=== PATIENT | male | born 2000 | race American Indian/Alaskan Native ===

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

== ENCOUNTER 2019-02-06 20:05 | Emergency (ER) | payer MEDICAID ==
[2019-02-06 21:13] VITALS: BP 126/54
--- NOTE | 2019-02-06 21:31 | Emergency Department Report ---
Blank Doc - Documentation Documentation: 18 y/o male with a bump in his groin that he noticed this evening.
[2019-02-06] MEDS ORDERED: BACTRIM DS PO ONE (22:30)
[2019-02-06] MEDS ORDERED: TYLENOL PO ONE (22:30)
[2019-02-06] MEDS ORDERED: ZOFRAN ODT PO ONE (22:31)
--- NOTE | 2019-02-06 23:05 | Emergency Department Report ---
- General Chief complaint: Urogenital-Male Stated complaint: BUMP IN PRIVATE AREA Time Seen by Provider: 02/06/19 22:20 Source: patient, EMS Mode of arrival: Ambulatory Limitations: No Limitations - History of Present Illness MD complaint: rash, insect bite/sting, abscess/boil -: Sudden, days(s) (5) Tetanus Up to Date: yes Location: LUE, genitals Severity: moderate Severity scale (0 -10): 5 Quality: aching, sharp Consistency: constant Improves with: none Worsens with: palpation, movement Context: none Associated symptoms: denies other symptoms Treatments Prior to Arrival: none - Related Data Previous Rx's Medication Instructions Recorded Last Taken Type Acetaminophen/Codeine [Tylenol 2 tab PO QHS PRN #8 tab 12/13/17 Unknown Rx /Codeine # 3 tab] cephALEXin [Keflex] 500 mg PO Q8HR 10 Days #30 cap 12/13/17 Unknown Rx Ibuprofen [Motrin 600 MG tab] 600 mg PO Q8H PRN #15 tablet 06/19/18 Unknown Rx Ibuprofen [Motrin] 600 mg PO Q8H PRN #20 tablet 02/06/19 Unknown Rx Sulfamethoxazole/Trimethoprim 1 each PO Q12H #20 tablet 02/06/19 Unknown Rx [Bactrim DS TAB] Allergies Allergy/AdvReac Type Severity Reaction Status Date / Time No Known Allergies Allergy Unverified 12/13/17 17:38 Abscess Boil HPI - HPI Chief Complaint: Urogenital-Male Stated Complaint: BUMP IN PRIVATE AREA Time Seen by Provider: 02/06/19 22:20 Duration: 5 Days Location: Other (suprapubic area) Severity: Moderate History: Yes Insect Bite, No Fever, No Pain, No Purulent Drainage, No Numbness, No Foreign Body, No Previous History Home Medications: Previous Rx's Medication Instructions Recorded Last Taken Type Acetaminophen/Codeine [Tylenol 2 tab PO QHS PRN #8 tab 12/13/17 Unknown Rx /Codeine # 3 tab] cephALEXin [Keflex] 500 mg PO Q8HR 10 Days #30 cap 12/13/17 Unknown Rx Ibuprofen [Motrin 600 MG tab] 600 mg PO Q8H PRN #15 tablet 06/19/18 Unknown Rx Ibuprofen [Motrin] 600 mg PO Q8H PRN #20 tablet 02/06/19 Unknown Rx Sulfamethoxazole/Trimethoprim 1 each PO Q12H #20 tablet 02/06/19 Unknown Rx [Bactrim DS TAB] Allergies/Adverse Reactions: Allergies Allergy/AdvReac Type Severity Reaction Status Date / Time No Known Allergies Allergy Unverified 12/13/17 17:38 ED Review of Systems ROS: Stated complaint: BUMP IN PRIVATE AREA Other details as noted in HPI Comment: All other systems reviewed and negative Constitutional: no symptoms reported, see HPI. denies: chills, fever, weakness Eyes: as per HPI. denies: eye pain, eye discharge, vision change ENT: as per HPI. denies: ear pain, throat pain, dental pain, hearing loss Respiratory: no symptoms reported, see HPI. denies: cough, shortness of breath Cardiovascular: as per HPI. denies: chest pain, dyspnea on exertion, syncope Endocrine: no symptoms reported, see HPI Gastrointestinal: as per HPI. denies: abdominal pain, nausea, vomiting, diarrhea Genitourinary: as per HPI. denies: urgency, dysuria, frequency, hematuria, discharge, testicular pain, testicular mass Musculoskeletal: as per HPI. denies: back pain, joint swelling, arthralgia, myalgia Skin: as per HPI, rash, change in color, pruritus, other (swollen, painful left upper arm and left inguinal maculopapular erythematous nonfluctuant rash). de nies: change in hair/nails Neurological: as per HPI. denies: headache, weakness, numbness, paresthesias, abnormal gait, vertigo Psychiatric: as per HPI Hematological/Lymphatic: as per HPI ED Past Medical Hx - Past Medical History Previous Medical History?: Yes Additional medical history: insomnia - Surgical History Past Surgical History?: No - Social History Smoking Status: Current Every Day Smoker Substance Use Type: Marijuana - Medications Home Medications: Home Medications Medication Instructions Recorded Confirmed Last Taken Type Acetaminophen/Codeine [Tylenol 2 tab PO QHS PRN #8 tab 12/13/17 Unknown Rx /Codeine # 3 tab] cephALEXin [Keflex] 500 mg PO Q8HR 10 Days #30 cap 12/13/17 Unknown Rx Ibuprofen [Motrin 600 MG tab] 600 mg PO Q8H PRN #15 tablet 06/19/18 Unknown Rx Ibuprofen [Motrin] 600 mg PO Q8H PRN #20 tablet 02/06/19 Unknown Rx Sulfamethoxazole/Trimethoprim 1 each PO Q12H #20 tablet 02/06/19 Unknown Rx [Bactrim DS TAB] ED Physical Exam - General Limitations: No Limitations General appearance: alert, in no apparent distress, anxious - Head Head exam: Present: normocephalic, normal inspection - Eye Eye exam: Present: normal appearance, PERRL, EOMI Pupils: Present: normal accommodation - ENT ENT exam: Present: normal exam, normal orophraynx, mucous membranes moist, TM's normal bilaterally, normal external ear exam - Neck Neck exam: Present: normal inspection. Absent: tenderness, full ROM, lymphadenopathy - Respiratory Respiratory exam: Present: normal lung sounds bilaterally. Absent: respiratory distress, wheezes, rhonchi, chest wall tenderness - Cardiovascular Cardiovascular Exam: Present: regular rate, normal rhythm, normal heart sounds - GI/Abdominal GI/Abdominal exam: Present: soft, normal bowel sounds. Absent: distended, tenderness, guarding - Rectal Rectal exam: Present: deferred - exam: Present: normal inspection, circumcision. Absent: testicular tenderness, urethral discharge, scrotal swelling, vertical testicular lie External exam: Present: normal external exam. Absent: erythema, swelling, lacerations - Expanded Exam Expanded exam: Inguinal Lymphadenopathy: Left (swollen, tender to palpation) - Extremities Exam Extremities exam: Present: full ROM, tenderness, normal capillary refill, other (palpable left upper arm tenderness due to maculopapular erythematous rash) - Back Exam Back exam: Present: normal inspection, full ROM. Absent: tenderness, CVA tenderness (R), CVA tenderness (L), muscle spasm - Neurological Exam Neurological exam: Present: alert, oriented X3, CN II-XII intact, normal gait, reflexes normal - Psychiatric Psychiatric exam: Present: normal affect - Skin Skin exam: Present: warm, dry, rash, erythema, other (swollen, erythematous maculopapular rash on left upper arm and left inguinal area with tenderness) ED Course Vital Signs 02/06/19 21:12 Temperature 98.4 F Pulse Rate 78 Respiratory 16 Rate Blood Pressure 126/54 O2 Sat by Pulse 98 Oximetry ED Medical Decision Making - Medical Decision Making Patient had presented to the ED with complaint of painful swollen mildly erythematous rash on left upper arm and left inguinal area. In the ED, patient is hemodynamically stable, and was treated for pain and given initial dose of oral antibiotics Bactrim DS. On reevaluation, the patient's pain is well controlled and patient was discharged home on pain medications and oral antibiotics, and advised to follow up with his primary care physician in 7-10 days for reevaluation or return to the ED immediately if symptoms get worse. - Differential Diagnosis Acute folliclulitis, Cellulitis, Insect bite, Inguinal Lymphadenopathy Critical care attestation.: If time is entered above; I have spent that time in minutes in the direct care of this critically ill patient, excluding procedure time. ED Disposition Clinical Impression: Acute folliculitis, Cutaneous abscess of groin, Lymphadenopathy, inguinal Disposition: TO HOME OR SELFCARE Is pt being admited?: No Does the pt Need Aspirin: No Condition: Stable Instructions: Abscess (ED), Cellulitis (ED), Lymphadenopathy (ED) Additional Instructions: Take medications with food, drink plenty of fluids and follow up with your primary care physician as advised. Return to the ED immediately if symptoms get worse. Prescriptions: Sulfamethoxazole/Trimethoprim [Bactrim DS TAB] 1 each PO Q12H #20 tablet Ibuprofen [Motrin] 600 mg PO Q8H PRN #20 tablet PRN Reason: Pain Referrals: LINDA RUIZ MD [Primary Care Provider] - 3-5 Days Time of Disposition: 23:07 Print Language: ANGOLAN
== END 2019-02-06 23:17 | disposition home or self-care (01) ==
LOC: ED 20:05
DX: L73.9 Follicular disorder, unspecified (principal); L02.214 Cutaneous abscess of groin; R59.1 Generalized enlarged lymph nodes; F17.200 Nicotine dependence, unspecified, uncomplicated
CPT/HCPCS: Q0162

== ENCOUNTER 2020-07-21 20:37 | Emergency (ER) | payer MEDICAID ==
--- NOTE | 2020-07-21 21:11 | Emergency Department Report ---
<SMITH MAHONEY - Last Filed: 07/23/20 11:29> History of Present Illness - General Chief Complaint: Overdose Stated Complaint: SUICIDE ATTEMPT Time Seen by Provider: 07/21/20 20:41 - Related Data Previous Rx's Medication Instructions Recorded Last Taken Type Acetaminophen/Codeine [Tylenol 2 tab PO QHS PRN #8 tab 12/13/17 Unknown Rx /Codeine # 3 tab] cephALEXin [Keflex] 500 mg PO Q8HR 10 Days #30 cap 12/13/17 Unknown Rx Ibuprofen [Motrin 600 MG tab] 600 mg PO Q8H PRN #15 tablet 06/19/18 Unknown Rx Ibuprofen [Motrin] 600 mg PO Q8H PRN #20 tablet 02/06/19 Unknown Rx Sulfamethoxazole/Trimethoprim 1 each PO Q12H #20 tablet 02/06/19 Unknown Rx [Bactrim DS TAB] Ziprasidone [Geodon] 20 mg PO BID #60 capsule 07/23/20 Unknown Rx traZODone [Desyrel] 50 mg PO QHS 30 Days #30 tablet 07/23/20 Unknown Rx Allergies Allergy/AdvReac Type Severity Reaction Status Date / Time No Known Allergies Allergy Unverified 12/13/17 17:38 ED Past Medical Hx - Medications Home Medications: Home Medications Medication Instructions Recorded Confirmed Last Taken Type Acetaminophen/Codeine [Tylenol 2 tab PO QHS PRN #8 tab 12/13/17 Unknown Rx /Codeine # 3 tab] cephALEXin [Keflex] 500 mg PO Q8HR 10 Days #30 cap 12/13/17 Unknown Rx Ibuprofen [Motrin 600 MG tab] 600 mg PO Q8H PRN #15 tablet 06/19/18 Unknown Rx Ibuprofen [Motrin] 600 mg PO Q8H PRN #20 tablet 02/06/19 Unknown Rx Sulfamethoxazole/Trimethoprim 1 each PO Q12H #20 tablet 02/06/19 Unknown Rx [Bactrim DS TAB] Ziprasidone [Geodon] 20 mg PO BID #60 capsule 07/23/20 Unknown Rx traZODone [Desyrel] 50 mg PO QHS 30 Days #30 tablet 07/23/20 Unknown Rx ED Course - Reevaluation(s) Reevaluation #3: 07/23/20 11:30 Psychiatry Progress Note Patient Name: NAEEM DUKE Date of : 89 Patient Status: Emergency Emergency Provider: TRUNG PHILIPPE III Date: 07/23/20 07:51 Initialization Date: 07/23/20 07:51 Subjective - Reason for Consult Consult date: 07/23/20 Reason for consult: MHE Requesting physician: TRUNG PHILIPPE III - Chief Complaint Chief complaint: PSYCH HPI Patient was seen by me in the room this AM, patient reports doing pretty good, reports sleeping well states the medication really helped and that he no longer feels suicidal. Patient stated today he took the pills he thought his family will be happy that he was currently gone but instead they showed love that showed a moderate concern and that made him know that he has a family that cares. Patient denies any auditory or visual hallucination REVIEW OF SYSTEMS Constitutional: Negative for weight loss ENT: Negative for stridor Respiratory: Negative for cough or hemoptysis All other systems reviewed and are negative MENTAL STATUS EXAMINATION General Appearance and Behavior: Age appropriate, good hygiene, wearing appropriate clothes, lying in bed, good eye contact, cooperative polite with questioning. Cooperation: Participating/engaged Psychomotor Behavior: unremarkable and within normal limits Mood: Good Affect and affective range: Congruent with mood Thought Process: Fluent/Logical, Thought Content: Within reality Speech: Normal volume, Regular rate and rhythm Intellectual Functioning: Average Suicidal Ideation: Denies SI Homicidal Ideation: Denies HI Impulse Control: Unimpaired Insight and Judgment: Limited insight and judgment Memory: Normal Attention: Normal, Orientation: Alert, oriented Diagnoses: Assessment and Plan - Patient Problems (1) Acute stress disorder Current Visit: Yes Status: Acute Treatment Plan MEDICATIONS: Risks, benefits and alternatives of medications discussed with the patient, questions answered and consent obtained from patient. PSYCHOTHERAPY: Supportive psychotherapy provided MEDICAL: Per primary team DELIRIUM PRECAUTIONS: Please re-orient patient frequently, keep lights on during the day, and minimize benzodiazepines and opiates as these medications could worsen patient's confusion. CORE MICROARCHITECT: Per medical team DISPOSITION: Do Not Recommend acute inpatient psychiatric hospitalization at this time. Outpt safety discharge LEGAL STATUS: 1013 rescinded FOLLOW-UP: Will sign off Thank you for the consult. Please contact with any questions and/or concerns. Reevaluation #4: 07/23/20 11:30 Patient has been restarted on his medications. Patient is feeling much improved. His depression was centered around feeling as though his family did not care anything about them. They have shown great deal support since he has been here at the hospital which is made the patient feel much better about his current living status. Patient is 1013 has been presented by mental health assessment team and the patient is stable for discharge at this time. ED Medical Decision Making - Lab Data Result diagrams: 07/21/20 21:28 07/21/20 21:28 ED Disposition Clinical Impression: Suicide attempt, Acute stress disorder, Suicidal ideation Overdose Qualifiers: Encounter type: initial encounter Injury intent: intentional self-harm Qualified Code(s): T50.902A - Poisoning by unspecified drugs, medicaments and biological substances, intentional self-harm, initial encounter Disposition: DC-01 TO HOME OR SELFCARE Is pt being admited?: No Does the pt Need Aspirin: No Condition: Stable Instructions: Depression (ED), Suicide Prevention for Adults (ED) Additional Instructions: OUTPATIENT MENTAL HEALTH RESOURCES [facility], [facility] Eladio Aguilera MD: [address] [facility] [address] [place] [address] [place] [address] [facility]: [employer] [address] [place], [place] [address] [place] [address] [phone] [facility]: [facility]: [address] [place] [address] [address] [place] [address] [place] [address] [facility] [id number] [facility]: Toney Kirk MD: [address] [facility] [address] [facility] [id number] [facility]: [address] [place], [place] [id number] [phone] [place] CRISIS AND ACCESS LINE: Prescriptions: traZODone [Desyrel] 50 mg PO QHS 30 Days #30 tablet Ziprasidone [Geodon] 20 mg PO BID #60 capsule Referrals: PRIMARY CARE, [Primary Care Provider] - 7 Days <JOSE MARTIN SIDDIQUITRUNG Wu - Last Filed: 07/23/20 21:47> History of Present Illness - General Source: patient, EMS Mode of arrival: Stretcher Limitations: No Limitations - History of Present Illness Initial Comments: Patient is a 19-year-old male who presents emergency room with complaints of suicide attempt by overdose with ibuprofen. Patient states he took 10 tablets of 600 mg ibuprofen. Patient states he took him 2 hours prior to arrival. Patient states he is been depressed. Patient states he wanted to end it all. Patient states she is tired of living. Patient denies hallucinations. Patient denies homicidal ideation. Patient denies chest pain. Patient complains of epigastric pain. Patient denies recent travel. Patient denies recent international travel. Patient denies exposure to the novel coronavirus. Patient denies sick contacts. Patient denies fever and chills. Patient denies cough. Patient denies diarrhea. Patient denies coming in contact with anybody with symptoms of the novel coronavirus. Complaint: intentional overdose, accidental overdose -: Sudden Intent: suicide attempt How Overdose Was Discovered: called family/friend Context: Intentional Overdose: financial issues Associated Symptoms: depression Treatments Prior to Arrival: none ED Review of Systems ROS: Stated complaint: SUICIDE ATTEMPT Other details as noted in HPI Constitutional: denies: chills, fever Eyes: denies: eye pain, eye discharge, vision change ENT: denies: ear pain, throat pain Respiratory: denies: cough, shortness of breath, wheezing Cardiovascular: denies: chest pain, palpitations Endocrine: no symptoms reported Gastrointestinal: denies: abdominal pain, nausea, diarrhea Genitourinary: denies: urgency, dysuria Musculoskeletal: denies: back pain, joint swelling, arthralgia Skin: denies: rash, lesions Neurological: denies: headache, weakness, paresthesias Psychiatric: depression, suicidal thoughts. denies: auditory hallucinations, visual hallucinations, homicidal thoughts Hematological/Lymphatic: denies: easy bleeding, easy bruising ED Past Medical Hx - Past Medical History Previous Medical History?: Yes Hx Psychiatric Treatment: Yes (Bipolar, ADHD) Additional medical history: insomnia - Surgical History Past Surgical History?: No - Family History Family history: no significant - Social History Smoking Status: Current Some Day Smoker Substance Use Type: Alcohol ED Physical Exam - General Limitations: No Limitations General appearance: alert, in no apparent distress - Head Head exam: Present: atraumatic, normocephalic - Eye Eye exam: Present: normal appearance - ENT ENT exam: Present: mucous membranes moist - Neck Neck exam: Present: normal inspection - Respiratory Respiratory exam: Present: normal lung sounds bilaterally. Absent: respiratory distress, wheezes, rales - Cardiovascular Cardiovascular Exam: Present: regular rate, normal rhythm. Absent: systolic murmur, diastolic murmur, rubs, gallop - GI/Abdominal GI/Abdominal exam: Present: soft, tenderness (Epigastric tenderness), normal bowel sounds - Rectal Rectal exam: Present: deferred - Extremities Exam Extremities exam: Present: normal inspection - Back Exam Back exam: Present: normal inspection - Neurological Exam Neurological exam: Present: alert, oriented X3 - Psychiatric Psychiatric exam: Present: depressed, suicidal ideation - Skin Skin exam: Present: warm, dry, intact, normal color. Absent: rash ED Course Vital Signs 07/21/20 07/21/20 07/21/20 20:53 20:57 21:00 Temperature 99.1 F Pulse Rate 59 L 57 L 57 L Respiratory 12 14 16 Rate Blood Pressure 128/74 Blood Pressure 121/84 [Left] O2 Sat by Pulse 99 99 99 Oximetry 07/21/20 07/21/20 07/21/20 21:15 21:31 21:45 Temperature Pulse Rate 55 L 58 L 56 L Respiratory 14 12 12 Rate Blood Pressure 133/80 133/80 148/55 Blood Pressure [Left] O2 Sat by Pulse 99 99 98 Oximetry 07/21/20 07/21/20 07/21/20 22:01 22:15 22:31 Temperature Pulse Rate 55 L 57 L 65 Respiratory 14 14 22 Rate Blood Pressure 131/74 131/74 115/63 Blood Pressure [Left] O2 Sat by Pulse 99 99 99 Oximetry 07/21/20 07/21/20 07/21/20 22:45 23:01 23:15 Temperature Pulse Rate 65 55 L 56 L Respiratory 11 L 14 13 Rate Blood Pressure 115/63 149/70 149/70 Blood Pressure [Left] O2 Sat by Pulse 98 100 98 Oximetry 07/21/20 07/21/20 07/22/20 23:31 23:45 00:00 Temperature Pulse Rate 60 71 54 L Respiratory 9 L 12 23 Rate Blood Pressure 150/71 150/71 160/72 Blood Pressure [Left] O2 Sat by Pulse 99 98 99 Oximetry 07/22/20 07/22/20 07/22/20 00:15 00:31 00:45 Temperature Pulse Rate 59 L 55 L 57 L Respiratory 18 16 16 Rate Blood Pressure 160/72 141/87 141/87 Blood Pressure [Left] O2 Sat by Pulse 100 100 99 Oximetry 07/22/20 07/22/20 07/22/20 01:00 01:15 01:31 Temperature Pulse Rate 54 L 57 L 57 L Respiratory 10 L 26 H 14 Rate Blood Pressure 152/83 152/83 156/98 Blood Pressure [Left] O2 Sat by Pulse 99 99 99 Oximetry 07/22/20 07/22/20 07/22/20 02:50 02:53 09:04 Temperature 97.7 F 97.7 F 97 F L Pulse Rate 64 69 65 Respiratory 18 18 19 Rate Blood Pressure 94/35 Blood Pressure 139/84 [Left] O2 Sat by Pulse 98 98 100 Oximetry 07/22/20 07/23/20 07/23/20 20:18 01:56 08:26 Temperature 98.7 F 97.7 F 98.3 F Pulse Rate 100 H 61 62 Respiratory 18 16 18 Rate Blood Pressure Blood Pressure 119/77 109/54 119/71 [Left] O2 Sat by Pulse 96 99 100 Oximetry - Reevaluation(s) Reevaluation #1: Initial evaluation done. Poison control has been consulted by the bedside nurse. Patient placed on a 1013. 07/21/20 21:10 Reevaluation #2: I discussed all results and clinical findings with patient. I discussed plan of care with patient. Patient agrees with plan of care. Patient is medically cleared. Patient will remain in the ER as an ER hold and a 1013. Patient is final disposition will come from our psychiatry mental health team. 07/22/20 01:47 - Consultations Consultation #1: NAEEM DUKE Male : 2000 Med[facility]# [id number] 07/21/20 20:55 (created 07/21/20 21:15) - Nurse Note by MARY FORTE Acctimothy Num: [id number] : 2000 Patient Age: 19 Spoke with Delmer from poison control. The following are his recommendations: Toxi cology labs, observation/monitoring, and symptom management. notified. Initialized on -07/21/20 21:15 END OF NOTE NAEEM DUKE [facility] : 2000 [id number] 07/22/20 01:18 - Nurse Note by MARY FORTE Acctimothy Num: [id number] : 2000 Patient Age: 19 Pt medically cleared by poison control. Spoke with Brian from Poison control Initialized on 07/22/20 01:18 - END OF NOTE ED Medical Decision Making - Lab Data Result diagrams: 07/21/20 21:28 07/21/20 21:28 - EKG Data -: EKG Interpreted by Me EKG shows normal: sinus rhythm, axis, intervals, QRS complexes, ST-T waves Rate: bradycardia - Medical Decision Making Patient is a 19-year-old male that presents emergency room with complaints of suicidal ideation and suicide attempt by overdose on ibuprofen. Patient states he took 6000 mg of ibuprofen. Poison control recommendations were received. Patient had labs done which were essentially unremarkable. Patient is medically cleared. Patient will remain in the ER as an ER hold and on a 1013 until the patient's final disposition comes from our psychiatry and mental health team. - Differential Diagnosis Overdose, depression, suicidal ideation, suicide attempt. Critical Care Time: Yes Critical care time in (mins) excluding proc time.: 35 Critical care attestation.: If time is entered above; I have spent that time in minutes in the direct care of this critically ill patient, excluding procedure time. Critical Care Time: 35 minutes ED Disposition Is pt being admited?: No Does the pt Need Aspirin: No Time of Disposition: 01:48
[2020-07-21] MEDS ORDERED: SODIUM CHLORIDE 0.9% 1000 ML 1,000 ML IV ONE (21:13)
[2020-07-21 21:51] LABS: Bacteria,Urine 1+ /HPF (Negative); Bilirubin,Urine NEG (Negative); Blood,Urine NEG (Negative); Color,Urine Straw (Yellow); Protein,Urine <15 mg/dL mg/dL (Negative); Urobilinogen,Urine < 2.0 mg/dL (<2.0)
[2020-07-21 21:53] LABS: Amphetamine Screen,Urine PRESUMPTIVE NEGATIVE; Benzodiazepines Screen,Urine PRESUMPTIVE NEGATIVE; Cannabinoid Screen,Urine PRESUMPTIVE POSITIVE; Cocaine Screen,Urine PRESUMPTIVE NEGATIVE; Methadone Screen,Urine PRESUMPTIVE NEGATIVE; Opiate Screen,Urine PRESUMPTIVE NEGATIVE
[2020-07-21 21:58] LABS: Basophils # (Auto) 0.1 K/mm3 (0.0-0.1); Basophils % (Auto) 0.9 % (0.0-1.8); Eosinophils # (Auto) 0.1 K/mm3 (0.0-0.4); Eosinophils % (Auto) 0.8 % (0.0-4.3); Hematocrit 44.9 % (35.5-45.6); Hemoglobin 14.8 gm/dl (11.8-15.2); Lymphocytes # (Auto) 1.9 K/mm3 (1.2-5.4); Lymphocytes % (Auto) 22.9 % (13.4-35.0); Mean Corpuscular HGB Conc 33 % (32-34); Mean Corpuscular Volume 89 fl (84-94); Monocytes # (Auto) 0.4 K/mm3 (0.0-0.8); Monocytes % (Auto) 4.4 % (0.0-7.3); Platelet Count 209 K/mm3 (140-440); Red Blood Count 5.07 M/mm3 (3.65-5.03); Red Cell Distribution Width 12.9 % (13.2-15.2)
[2020-07-21 22:04] LABS: Alanine Aminotransferase 9 units/L (7-56); Albumin 4.3 g/dL (3.9-5); Blood Urea Nitrogen 8 mg/dL (9-20); Calcium 9.4 mg/dL (8.4-10.2); Hemolysis Index 8
[2020-07-21 22:13] LABS: BUN/Creatinine Ratio 11
--- NOTE | 2020-07-22 11:23 | Consultation ---
History of Present Illness - Reason for Consult Consult date: 07/22/20 Reason for consult: suicidal attempt - History of Present Psychiatric Illness Wayne Reaves is a 19 y/o male who attempted suicide by taking a stated 6000mg of Ibuprofen. He states he "wanted to end it all." The patient is a/o x 3. Although the patient denies suicidal thoughts at present, he verbalizes being "depressed and not knowing what to do." He says his family is the source of it all. He says "my family always talking down to me." The patient says he has a history of "adhd and bipolar." He says he takes "geodon and risperidone." He says he's current on his medications. The patient denies a suicide attempt in the past. He says he's been admitted once in the past about 2 years ago. The patient denies hallucinations of any kind. He also denies any hard illicit drug use, current alcohol use or nicotine. He verbalizes "weed." Spoke with mom at the patient's request. Mom says she is uncomfortable with the patient coming home. She says he's very impulsive. PAST PSYCHIATRIC HISTORY Diagnoses: ADHD, bipolar Suicide attempts or Self-harm behavior: Denies Prior psychiatric hospitalizations: Yes Substance Abuse history: "weed" Previous psychiatric medications tried: Geodon, risperidone Outpatient treatment: Ye PAST MEDICAL HISTORY: None reported Family Psychiatric History: None reported or documented SOCIAL HISTORY Marital Status: Single Living Arrangements: With mom Employment Status: Unemployed Access to guns/weapons: Denies Education: High school History of Abuse: Denies Legal History: Denies EVIEW OF SYSTEMS Constitutional: Negative for weight loss ENT: Negative for stridor Respiratory: Negative for cough or hemoptysis All other systems reviewed and are negative MENTAL STATUS EXAMINATION General Appearance and Behavior: Age appropriate, wearing appropriate clothes, calm and cooperative Mood: "okay" Affect and affective range: congruent with mood Thought Process: Goal directed Thought Content: Denies Speech: Normal volume, Regular rate and rhythm Suicidal Ideation: Recent attempt Homicidal Ideation: Denies Hallucinations: Denies Delusions: None elicited Impulse Control: normal Insight and Judgment: Limited Memory/Cognition: Normal Attention: Normal Orientation: Alert, oriented Assessment Bipolar Disorder, Current Episode Depressed Plan 1013 Start Geodon 20mg po BID Start Trazodone 50mg po qhs Sitter: Defer to primary Medical: Per primary Disposition: Recommend acute inpatient treatment Will follow. Thank you for this consult. Medications and Allergies Allergies Allergy/AdvReac Type Severity Reaction Status Date / Time No Known Allergies Allergy Unverified 12/13/17 17:38 Home Medications Medication Instructions Recorded Confirmed Last Taken Type Acetaminophen/Codeine [Tylenol 2 tab PO QHS PRN #8 tab 12/13/17 Unknown Rx /Codeine # 3 tab] cephALEXin [Keflex] 500 mg PO Q8HR 10 Days #30 cap 12/13/17 Unknown Rx Ibuprofen [Motrin 600 MG tab] 600 mg PO Q8H PRN #15 tablet 06/19/18 Unknown Rx Ibuprofen [Motrin] 600 mg PO Q8H PRN #20 tablet 02/06/19 Unknown Rx Sulfamethoxazole/Trimethoprim 1 each PO Q12H #20 tablet 02/06/19 Unknown Rx [Bactrim DS TAB] Mental Status Exam - Vital signs Last Vital Signs Temp 97 F L 07/22/20 09:04 Pulse 65 07/22/20 09:04 Resp 19 07/22/20 09:04 BP 139/84 07/22/20 09:04 Pulse Ox 100 07/22/20 09:04 Results Result Diagrams: 07/21/20 21:28 07/21/20 21:28 Abnormal lab results 07/21/20 07/21/20 07/21/20 Range/Units 21:28 21:28 21:28 RBC 5.07 H (3.65-5.03) M/mm3 RDW 12.9 L (13.2-15.2) % Seg Neutrophils % 71.0 H (40.0-70.0) % BUN 8 L (9-20) mg/dL Creatinine 0.7 L (0.8-1.3) mg/dL Total Bilirubin 1.40 H (0.1-1.2) mg/dL Salicylates < 0.3 L (2.8-20.0) mg/dL Acetaminophen (10.0-30.0) ug/mL 07/21/20 Range/Units 21:28 RBC (3.65-5.03) M/mm3 RDW (13.2-15.2) % Seg Neutrophils % (40.0-70.0) % BUN (9-20) mg/dL Creatinine (0.8-1.3) mg/dL Total Bilirubin (0.1-1.2) mg/dL Salicylates (2.8-20.0) mg/dL Acetaminophen 5.0 L (10.0-30.0) ug/mL All other labs normal.
[2020-07-22] MEDS ORDERED: IBUPROFEN 600 MG TAB PO ONE (11:48)
[2020-07-22] MEDS: ZIPRASIDONE 20 MG CAP PO SCH ×2 (12:12→22:18)
[2020-07-22] MEDS ORDERED: traZODone 50 MG TAB PO SCH (22:00)
--- NOTE | 2020-07-23 07:52 | Progress Note ---
Subjective - Reason for Consult Consult date: 07/23/20 Reason for consult: MHE Requesting physician: TRUNG PHILIPPE III - Chief Complaint Chief complaint: PSYCH HPI Patient was seen by me in the room this AM, patient reports doing pretty good, reports sleeping well states the medication really helped and that he no longer feels suicidal. Patient stated today he took the pills he thought his family will be happy that he was currently gone but instead they showed love that showed a moderate concern and that made him know that he has a family that cares. Patient denies any auditory or visual hallucination REVIEW OF SYSTEMS Constitutional: Negative for weight loss ENT: Negative for stridor Respiratory: Negative for cough or hemoptysis All other systems reviewed and are negative MENTAL STATUS EXAMINATION General Appearance and Behavior: Age appropriate, good hygiene, wearing appropriate clothes, lying in bed, good eye contact, cooperative polite with questioning. Cooperation: Participating/engaged Psychomotor Behavior: unremarkable and within normal limits Mood: Good Affect and affective range: Congruent with mood Thought Process: Fluent/Logical, Thought Content: Within reality Speech: Normal volume, Regular rate and rhythm Intellectual Functioning: Average Suicidal Ideation: Denies SI Homicidal Ideation: Denies HI Impulse Control: Unimpaired Insight and Judgment: Limited insight and judgment Memory: Normal Attention: Normal, Orientation: Alert, oriented Diagnoses: Assessment and Plan - Patient Problems (1) Acute stress disorder Current Visit: Yes Status: Acute Treatment Plan MEDICATIONS: Risks, benefits and alternatives of medications discussed with the patient, questions answered and consent obtained from patient. PSYCHOTHERAPY: Supportive psychotherapy provided MEDICAL: Per primary team DELIRIUM PRECAUTIONS: Please re-orient patient frequently, keep lights on during the day, and minimize benzodiazepines and opiates as these medications could worsen patient's confusion. SENIOR ORACLE SOA DEVELOPER: Per medical team DISPOSITION: Do Not Recommend acute inpatient psychiatric hospitalization at this time. Outpt safety discharge LEGAL STATUS: 1013 rescinded FOLLOW-UP: Will sign off Thank you for the consult. Please contact with any questions and/or concerns. Mental Status Exam - Vital signs Last Vital Signs Temp 97.7 F 07/23/20 01:56 Pulse 61 07/23/20 01:56 Resp 16 07/23/20 01:56 BP 109/54 07/23/20 01:56 Pulse Ox 99 07/23/20 01:56 Assessment and Plan - Patient Problems (1) Acute stress disorder Current Visit: Yes Status: Acute
[2020-07-23 08:28] VITALS: BP 119/71
[2020-07-23] MEDS: ZIPRASIDONE 20 MG CAP PO SCH (11:48)
== END 2020-07-23 15:11 | disposition home or self-care (01) ==
LOC: ED 20:37
DX: T39.311A Poisoning by propionic acid derivatives, accidental (unintentional), initial encounter (principal); T14.91XA Suicide attempt, initial encounter; F43.0 Acute stress reaction; F31.9 Bipolar disorder, unspecified; F17.200 Nicotine dependence, unspecified, uncomplicated; Z79.899 Other long term (current) drug therapy; Y92.89 Other specified places as the place of occurrence of the external cause
CPT/HCPCS: 36415; 80053; 80307; 81001; 85025; 93005; 96360; 99285; J7030; 80320; G0480

== ENCOUNTER 2020-08-01 21:06 | Emergency (ER) | payer MEDICAID ==
--- NOTE | 2020-08-01 21:43 | Emergency Department Report ---
HPI - General Chief Complaint: Allergic Reaction - HPI HPI: 19-year-old male with a past medical history of bipolar, ADHD, insomnia recently discharged here on July 23 after staying in the ED several days for suicidal ideation presents to the hospital with complaints possible side effect to Geodon. Patient was receiving Geodon while in the hospital. He just filled his prescription and took his first dose today. Within 30 minutes he developed "locked jaw" and is unable to open his mouth or speak. He denies tongue swelling, shortness of breath, or rash ED Past Medical Hx - Past Medical History Previous Medical History?: Yes Hx Psychiatric Treatment: Yes (Bipolar, ADHD) Additional medical history: insomnia - Social History Smoking Status: Never Smoker - Medications Home Medications: Home Medications Medication Instructions Recorded Confirmed Last Taken Type Acetaminophen/Codeine [Tylenol 2 tab PO QHS PRN #8 tab 12/13/17 Unknown Rx /Codeine # 3 tab] cephALEXin [Keflex] 500 mg PO Q8HR 10 Days #30 cap 12/13/17 Unknown Rx Ibuprofen [Motrin 600 MG tab] 600 mg PO Q8H PRN #15 tablet 06/19/18 Unknown Rx Ibuprofen [Motrin] 600 mg PO Q8H PRN #20 tablet 02/06/19 Unknown Rx Sulfamethoxazole/Trimethoprim 1 each PO Q12H #20 tablet 02/06/19 Unknown Rx [Bactrim DS TAB] Ziprasidone [Geodon] 20 mg PO BID #60 capsule 07/23/20 Unknown Rx traZODone [Desyrel] 50 mg PO QHS 30 Days #30 tablet 07/23/20 Unknown Rx Benztropine [Cogentin] 2 mg PO BID #60 tab 08/01/20 Unknown Rx ED Review of Systems ROS: Stated complaint: LOCK JAW Other details as noted in HPI Comment: All other systems reviewed and negative Physical Exam - Physical Exam Vital Signs: Vital Signs 08/01/20 21:13 Temperature 97.9 F Pulse Rate 98 H Respiratory 16 Rate Blood Pressure 150/85 O2 Sat by Pulse 97 Oximetry Physical Exam: General: No acute distress Head: Atraumatic Eyes: normal appearance ENT: Trismus with inability to open mouth Neck: Normal appearance, no midline tenderness Chest: Clear to auscultation bilaterally CV: Regular rate and rhythm Abdomen: Soft, normal bowel sounds, nontender, nondistended, no rebound or guarding Back: Normal inspection Extremity: Normal inspection, full range of motion Neuro: Alert O x 3, no facial asymmetry, speech clear, no gross motor sensory deficit Psych: Appropriate behavior Skin: No rash ED Course Vital Signs 08/01/20 21:13 Temperature 97.9 F Pulse Rate 98 H Respiratory 16 Rate Blood Pressure 150/85 O2 Sat by Pulse 97 Oximetry ED Medical Decision Making - Medical Decision Making Patient presents to the hospital with dystonic reaction secondary to Geodon. Patient had dramatic improvement after receiving IV Benadryl and was able to speak clearly and had full range of motion of the jaw. Recommend the patient continue his current antipsychotics with the addition of Cogentin and follow-up with a psychiatrist for possible adjustment in his medication Critical Care Time: No Critical care attestation.: If time is entered above; I have spent that time in minutes in the direct care of this critically ill patient, excluding procedure time. ED Disposition Clinical Impression: Dystonic drug reaction, Adverse reaction to drug Disposition: DC-01 TO HOME OR SELFCARE Is pt being admited?: No Does the pt Need Aspirin: No Condition: Stable Instructions: Ziprasidone (By mouth), Adverse Drug Reaction (ED) Additional Instructions: Take the medication as prescribed. Follow-up with your doctor or doctor/clinic provided. Return if symptoms worsen as indicated by your discharge instructions. For now I recommend that you continue Geodon with the addition of Cogentin which should prevent "locked jaw". If you continue to have lock jaw symptoms despite taking the Cogentin you may need to discontinue the Geodon and have a substitute antipsychotic medication. Please follow-up with psychiatrist for further recommendations for medication adjustment. Prescriptions: Benztropine [Cogentin] 2 mg PO BID #60 tab Referrals: PRIMARY CARE, [Primary Care Provider] - 3-[address] [facility] [Outside] - 3-5 Days Time of Disposition: 22:59
[2020-08-01] MEDS ORDERED: diphenhydrAMINE 50 MG/ML VIAL IV ONE (21:44)
[2020-08-01 22:47] VITALS: BP 126/67
== END 2020-08-01 23:16 | disposition home or self-care (01) ==
LOC: ED 21:06
DX: T43.595A Adverse effect of other antipsychotics and neuroleptics, initial encounter (principal); F31.9 Bipolar disorder, unspecified; F90.8 Attention-deficit hyperactivity disorder, other type; Z79.899 Other long term (current) drug therapy; Y92.89 Other specified places as the place of occurrence of the external cause
CPT/HCPCS: 96374; 99283; J1200; 99281

== ENCOUNTER 2020-08-01 23:36 | Emergency (ER) | payer MEDICAID ==
[2020-08-02 00:04] VITALS: BP 137/79
--- NOTE | 2020-08-02 00:34 | Emergency Department Report ---
HPI - General Chief Complaint: Allergic Reaction Time Seen by Provider: 08/02/20 00:08 - HPI HPI: 19-year-old male represents to the ER shortly after discharge for recurrent feeling that his jaw is locking up. I saw patient during recent ED admission and discharged him less than 1 hour ago. He has taken his prescribed oral Geodon at home for the first time and developed lockjaw/trismus. During that presentation he was unable to open his mouth and speak at all. After receiving Benadryl 50 mg IV he had a dramatic improvement in his symptom was able to speak and therefore was subsequently discharged. While outside waiting for his ride he complained of feeling like his jaw was not locked up again however, he is able to speak currently and does not exhibit signs of trismus. ED Past Medical Hx - Past Medical History Previous Medical History?: Yes Hx Psychiatric Treatment: Yes (Bipolar, ADHD) Additional medical history: insomnia - Social History Smoking Status: Never Smoker - Medications Home Medications: Home Medications Medication Instructions Recorded Confirmed Last Taken Type Acetaminophen/Codeine [Tylenol 2 tab PO QHS PRN #8 tab 12/13/17 Unknown Rx /Codeine # 3 tab] cephALEXin [Keflex] 500 mg PO Q8HR 10 Days #30 cap 12/13/17 Unknown Rx Ibuprofen [Motrin 600 MG tab] 600 mg PO Q8H PRN #15 tablet 06/19/18 Unknown Rx Ibuprofen [Motrin] 600 mg PO Q8H PRN #20 tablet 02/06/19 Unknown Rx Sulfamethoxazole/Trimethoprim 1 each PO Q12H #20 tablet 02/06/19 Unknown Rx [Bactrim DS TAB] Ziprasidone [Geodon] 20 mg PO BID #60 capsule 07/23/20 Unknown Rx traZODone [Desyrel] 50 mg PO QHS 30 Days #30 tablet 07/23/20 Unknown Rx Benztropine [Cogentin] 2 mg PO BID #60 tab 08/01/20 Unknown Rx ED Review of Systems ROS: Stated complaint: LOCK JAW Other details as noted in HPI Comment: All other systems reviewed and negative Physical Exam - Physical Exam Vital Signs: Vital Signs 08/02/20 00:02 Temperature 98.6 F Pulse Rate 81 Respiratory 20 Rate Blood Pressure 137/79 O2 Sat by Pulse 96 Oximetry Physical Exam: General: No acute distress Head: Atraumatic Eyes: normal appearance ENT: Moist mucous membranes, no trismus speaking appropriately Neck: Normal appearance, no midline tenderness Chest: Clear to auscultation bilaterally CV: Regular rate and rhythm Abdomen: Soft, normal bowel sounds, nontender, nondistended, no rebound or guarding Back: Normal inspection Extremity: Normal inspection, full range of motion Neuro: Alert O x 3, no facial asymmetry, speech clear, no gross motor sensory deficit Psych: Appropriate behavior Skin: No rash ED Course Vital Signs 08/02/20 00:02 Temperature 98.6 F Pulse Rate 81 Respiratory 20 Rate Blood Pressure 137/79 O2 Sat by Pulse 96 Oximetry - Reevaluation(s) Reevaluation #1: 08/02/20 00:36 Patient does not have any trismus during his second presentation which has continued to be improved since receiving IV Benadryl during my initial ER evaluation. Patient is nervous about symptoms returning. Will observe for longer to assure no recurrence in symptoms. 08/02/20 01:45 During ED stay patient has not exhibited any recurrent trismus was dystonic symptoms. He currently feels like he can be discharged home. ED Medical Decision Making - Medical Decision Making Patient plans to follow-up with mental health tomorrow. He plans to call to schedule an appointment. Given patient's symptoms after Geodon instead of having him take continue it I advised that he discontinue the medication and follow-up with mental health on Sunday for advice as to medication adjustment. Patient may stay take Cogentin if he feels like symptoms have not completely improved. Critical Care Time: No Critical care attestation.: If time is entered above; I have spent that time in minutes in the direct care of this critically ill patient, excluding procedure time. ED Disposition Clinical Impression: Dystonic drug reaction, Adverse reaction to drug Disposition: DC-01 TO HOME OR SELFCARE Is pt being admited?: No Condition: Stable Instructions: Adverse Drug Reaction (ED) Additional Instructions: I am hesitant to discontinue the Geodon because you may need it for psychiatric stabilization however, you are at risk for continued side effects while taking the medication. Cogentin has been prescribed to help reduce the incidence of recurrent lockjaw while taking Geodon. Ideally you should see a psychiatrist as soon as possible to discuss an alternative medication to treat your underlying psychiatric disorder. Please try to see a psychiatrist as soon as possible. If you continue to have the symptoms you may discontinue the Geodon. Please return if symptoms worsen as indicated by your discharge instructions Referrals: PRIMARY CAREMD [Primary Care Provider] - 3-5 Days [facility] [Outside] - 3-5 Days [facility] [Provider Group] - 3-5 Days LINDA RUIZ MD [Staff Physician] - 3-5 Days Time of Disposition: 01:45
== END 2020-08-02 02:38 | disposition home or self-care (01) ==
LOC: ED 23:36
DX: T43.595A Adverse effect of other antipsychotics and neuroleptics, initial encounter (principal); F31.9 Bipolar disorder, unspecified; F90.8 Attention-deficit hyperactivity disorder, other type; Z79.899 Other long term (current) drug therapy; G47.09 Other insomnia; Y92.89 Other specified places as the place of occurrence of the external cause
CPT/HCPCS: 99281